=== PATIENT | female | born 1970 ===

== ENCOUNTER 2024-04-08 10:14 | Emergency (ER) | payer MEDICAID, SELFPAY ==
--- NOTE | ~2024-04-08 | US_ITS ---
EXAMINATION: US TRIPLEX LOWER EXTREMITY, RIGHT CLINICAL INFORMATION: Pain. Elevated d-dimer. COMPARISON: None available. TECHNIQUE: Color-flow triplex imaging with spectral analysis and compression Doppler were performed on the right lower extremity. FINDINGS: Respiratory variation, normal compression and augmented flow are noted throughout the right lower extremity. The visualized common femoral vein, superficial femoral vein, profunda femoral vein, popliteal vein and midcalf peroneal and posterior tibial venous segments show no evidence of deep venous thrombosis. There is no Quintana's cyst. US/US venous duplex LE RT IMPRESSION: No acute deep venous thrombosis in the interrogated veins, right lower extremity. Electronically signed by: Phong Farmer MD 04/08/2024 02:20 PM EST
--- NOTE | ~2024-04-08 | CT_ITS ---
EXAMINATION: CT ANGIOGRAM CHEST CLINICAL INFORMATION: Chest pain for one month. Elevated d-dimer. COMPARISON: None available. TECHNIQUE: Multiple axial images were obtained through the chest after the administration of 65 mL of Omnipaque 350 intravenous contrast without reported immediate complications. Extensive vascular post-processing including two-dimensional and three-dimensional reformatted images were created and reviewed on an independent workstation. This CT examination was performed using dose optimization techniques as appropriate, variously including the following: *Automated exposure control *Adjustment of mA and/or kV according to patient size (this includes techniques or standardized protocols for targeted exams where dose is matched to indication/reason for exam; i.e. extremities or head) *Use of iterative reconstruction technique DLP: 238 mGy-cm FINDINGS: No gross intraluminal filling defects within the main pulmonary artery or its main branches. Questionable intraluminal filling defects in the subsegmental pulmonary artery branches to the right lower lung lobe. No aneurysm or dissection, thoracic aorta. No mediastinal lymphadenopathy. No pericardial effusion. No consolidation, pleural effusion or pneumothorax. No bronchiectasis. No honeycombing. Respiratory airways patent. No acute fracture or listhesis in the axial skeleton. CT/CT angio chest PE protocol IMPRESSION: Questionable acute pulmonary emboli subsegmental pulmonary branches to the right lower lung lobe. Fleischner guidelines were followed. Electronically signed by: Phong Farmer MD 04/08/2024 01:20 PM [facility]
--- NOTE | ~2024-04-08 | XR_ITS ---
EXAMINATION: XR CHEST CLINICAL INFORMATION: Chest pain. COMPARISON: None available. TECHNIQUE: 2 views of the chest were obtained. FINDINGS: Mild indistinct margins in the perihilar regions. No consolidation pleural effusion or pneumothorax. Cardiomediastinal silhouette is enlarged. S-shaped curvature of the thoracic spine. XR/XR chest 2V IMPRESSION: Mild interstitial edema in the correct clinical settings. Cardiomegaly versus pericardial effusion. Electronically signed by: Phong Farmer MD 04/08/2024 11:59 AM [facility]
--- NOTE | 2024-04-08 10:18 | ECG_ITS ---
Test Reason : CP Blood Pressure : / mmHG Vent. Rate : 073 BPM Atrial Rate : 073 BPM P-R Int : 174 ms QRS Dur : 076 ms QT Int : 362 ms P-R-T Axes : 065 017 012 degrees QTc Int : 398 ms Normal sinus rhythm Minimal voltage criteria for LVH, may be normal variant ( Sokolow-Shay ) Borderline ECG No previous ECGs available Referred By: Karime Fowler Electronically Signed By:REYNA CONNELLY MD
--- NOTE | 2024-04-08 10:18 | ED.GENADULT ---
HPI - General Adult General Chief complaint: Chest Pain Stated complaint: CPX 1 MONTH Time Seen by Provider: 04/08/24 10:17 Source: patient, EMS, RN notes reviewed and ground support agent Mode of arrival: EMS Limitations: language barrier History of Present Illness ED Provider: jocelyn HPI narrative: Patient is a 53-year-old Citizen Of [place] Creole speaking female presenting to the emergency department with complaint of right anterior chest pain which radiates to right shoulder and upper back for the past month. States that she flew here in November from [place]. Saw a doctor in [place] for similar symptoms, and was prescribed an unknown liquid medication. At times has palpitations, denies any shortness of breath associated with pain. Does reports right calf pain when ambulating down her apartment stairs, none otherwise. Denies recent cough or fever. Denies nausea or vomiting. MD complaint: chest pain Onset (ago): month(s) Location: chest Radiation: back Severity scale (1-10): 8 Quality: stabbing Pain Consistency: colicky Exacerbating factors: movement Treatments prior to arrival: none Related Data Previous Rx's ?Medication ?Instructions ?Recorded apixaban 5 mg (74 tabs) tablets in 5 mg PO BID #74 ea 04/08/24 a dose pack (EliquTheraSim DVT-PE Treat 30D Start) Allergies Allergy/AdvReac Type Severity Reaction Status Date / Time No Known Allergies Allergy Verified 04/08/24 10:32 Review of Systems Review of Systems: As per HPI. Yes all other systems are reviewed and are negative Constitutional: Constitutional: Reports as per HPI [facility] Social History Social History Advance Directives: No Advance Directives Information Provided: Yes Do you have a plan to hurt others: No Plan Physical Exam ED Vital Signs: Vital Signs - 24 hr 04/08/24 10:28 04/08/24 14:13 04/08/24 14:14 Temperature 98.5 F 98.4 F Pulse Rate 80 82 Respiratory Rate 20 18 Blood Pressure 170/93 H 178/85 H Pulse Oximetry 100 100 Oxygen Delivery Method Room Air BMI result Body Mass Index 26.5 Vital signs have been reviewed and appear to be correct. Blood pressure normal. Heart rate normal. Respiratory rate normal. Temperature normal. Oxygen saturation normal. Const General: cooperative, healthy appearing and no acute distress Orientation/consciousness: oriented to person, oriented to place, oriented to time and patient oriented x3 Limitations: no limitations HENMT Head: Yes normocephalic and Yes atraumatic Ears: external ears normal General nose exam: Normal external nose present Face and sinus: Yes face symmetric Mouth: oropharynx normal and moist mucous membranes Throat: Yes uvula midline Eyes Pupils: Equal, round and reactive pupils present Neck Neck: Yes normal visual inspection and Yes supple Resp Effort & Inspection: normal respiratory effort and able to speak in complete sentences Auscultation: clear to auscultation bilaterally Cardio Rate: regular rate Rhythm: regular rhythm Heart sounds: S1 normal heart sound present and S2 normal heart sound present GI Palpation (GI): Soft to palpation and nontender Auscultation: normoactive bowel sounds General: Yes no CVA tenderness Back/Spine/Pelvis Back: no CVA tenderness Skin General skin exam: elasticity normal and turgor normal Neuro General: oriented to person, oriented to place, oriented to time, patient oriented x3, moves all extremities, no focal motor deficits and CN's II-XI intact bilaterally Cranial nerves: Yes Equal, round and reactive pupils present Cognition (Neuro): normal cognition Extrem General: Yes full ROM, Yes no pedal edema and Yes no calf tenderness Psych Mental Status: mental status grossly normal Affect: normal affect Thought process: Normal thought process present Medications Administered Discontinued Medications Generic Name Dose Route Start Last Admin Trade Name Vinodq PRN Reason Stop Dose Admin Iohexol 100 ml 04/08/24 13:05 04/08/24 13:05 Iohexol 350 Mg/Ml 100 Ml Infus..Btl IV 04/08/24 13:06 65 ml ONCE ONE Administration Medical Decision Making Medical Decision Making [facility] Narrative: Patient is a 53-year-old Citizen [place] Creole speaking female presenting to the emergency department with complaint of right anterior chest pain which radiates to right shoulder and upper back for the past month. On exam patient is awake, A+Ox3, VS WNL, afebrile, normal neurological exam without focal deficits, physical exam findings as above. Given reported symptoms and physical exam findings, initial differential includes ACS, PE, GERD, musculoskeletal pain. Labs notable for no leukocytosis, no electrolyte abnormalities, slightly elevated troponin, elevated D-dimer, will obtain CTA chest. CTA notable for questionable acute PE subsegmental pulmonary branches of right lower lobe. My interpretation is in agreement with the radiologist's interpretation. Patient updated on results. Denies any conditions contraindicating treatment with Eliquis. States she is not currently on any other medications. Also requesting to be discharged prior to repeat troponin. I am ok with this as chest pain has been ongoing >1 month, initial trop was 7. Strict return precautions discussed with patient and daughter. Instructed patient that she will need to follow up with [facility] at 3 months. Return to ED with any other new or concerning symptoms. Patient and daughter verbalized understanding of and agreement with plan. Patient provided with Eliquis co-pay card as well as good Rx card. Differential Diagnosis Differential Diagnoses: The differential diagnosis associated with the presentation includes As per [facility] Admission/Observation Consideration of admission/observation: Escalation of care including admission/observation considered Patient would have been admitted to the hospital had their work up had any findings where hospital admission was appropriate and their clinical presentation warranted hospital admission. Lab Data [facility] Lab Attestation statement: I reviewed the patient's lab results. As per [facility] 04/08/24 11:07 04/08/24 11:07 Labs: Lab Results 04/08/24 Range/Units 11:07 WBC 6.4 (4.8-10.8) X10*3/uL RBC 3.94 L (4.20-5.50) X10*6/uL Hgb 12.4 (12.0-16.0) g/dl Hct 35.5 L (37.0-47.0) % MCV 90.1 (80.0-98.0) fL MCH 31.5 (27.0-33.0) pg MCHC 34.9 (31.0-35.0) g/dl RDW 12.6 (11.0-16.0) % Plt Count 185 (160-400) X10*3/uL MPV 10.2 (9.4-12.3) fL Immature Gran % (Auto) 0.3 (0.0-0.4) % Neut % (Auto) 62.4 (45-73) % Lymph % (Auto) 28.2 (20-40) % [place] % (Auto) 7.8 (2-11) % Eos % (Auto) 0.8 (0-4) % Baso % (Auto) 0.5 (0-2) % Lymph # (Auto) 1.8 (1.2-4.9) X10*3/uL [place] # (Auto) 0.5 (0.1-1.2) X10*3/uL Eos # (Auto) 0.1 (0.0-0.4) X10*3/uL Baso # (Auto) 0.0 (0.0-0.2) X10*3/uL Abs Immat Gran (auto) 0.02 (0.00-0.03) X10*3/uL Absolute Neuts (auto) 4.0 (2.0-8.3) x10*3/uL Absolute Nucleated RBC 0.000 (0.0-0.012) X10*3/uL Nucleated RBC % (auto) 0.0 (0.0-0.2) /100WBC PT 12.2 (10.9-12.4) SEC INR 1.0 (0.9-1.1) D-Dimer High Sensitivty 569 NG/ML Sodium 142 (135-145) mmol/L Potassium 4.3 (3.3-5.1) mmol/L Chloride 109 H (96-108) mmol/L Carbon Dioxide 25 (22-29) mmol/L Anion Gap 12 (12-20) BUN 13 (9-16) mg/dL Creatinine 0.79 (0.5-1.4) mg/dL Estim Creat Clear Calc 92.1 Estimated GFR > 60 Random Glucose 80 (60-115) mg/dL Calcium 9.7 (8.4-10.2) mg/dL Magnesium 2.0 (1.6-2.6) mg/dL Total Bilirubin 0.4 (0.0-1.0) mg/dL AST 26 (5-31) U/L ALT 17 (0-31) U/L Alkaline Phosphatase 93 (39-117) U/L Troponin I High Sens 7.6 (<3.5-17.0) ng/L B-Natriuretic Peptide 38 (<100) pg/mL Total Protein 8.2 H (6.5-8.0) g/dL Albumin 4.3 (3.5-5.0) g/dL Influenza Type A (PCR) NEGATIVE (Negative) Influenza Type B (PCR) NEGATIVE (Negative) RSV RNA Qual (PCR) NEGATIVE (Negative) SARS-CoV-2 RNA (RT-PCR) NEGATIVE (Negative) Independent Interpretation I performed an independent interpretation of an: Ultrasound and CT Scan Interpretation: CTA notable for questionable acute PE subsegmental pulmonary branches of right lower lobe. No DVT right leg on ultrasound. Radiology Impression Discussion of test interpretation with radiology: I have reviewed the radiologist's reading. Radiologist Impression: CT/CT angio chest PE protocol IMPRESSION: Questionable acute pulmonary emboli subsegmental pulmonary branches to the right lower lung lobe. US/US venous duplex LE RT IMPRESSION: No acute deep venous thrombosis in the interrogated veins, right lower extremity. External Record Review External record reviewed: Inpatient record, Office record and Outpatient record Prescription Management I considered prescription management with: Other Discharge Plan Discharge Clinical Impression: Pulmonary embolism Patient Disposition: Home, Self-Care Instructions: Apixaban (By mouth), Blood Thinners (ED) Additional Instructions: You were evaluated in the emergency department today for chest pain. Your CT scan showed a blood clot in your lung. You are being started on a blood thinner called Eliquis (apixaban). It is important that you take this medication as prescribed and not miss any doses. You will need to follow up with the [facility] clinic in 3 months. Call to schedule a follow up appointment. Return to the emergency department if you develop worsening chest pain, shortness of breath or difficulty breathing, or any other concerning symptoms. [address] [id number] Prescriptions: New Eliquis DVT-PE Treat 30D Start 5 mg (74 tabs) tablets,dose pack 5 mg PO BID Qty: 74 0RF Rx Instructions: 10mg (2 tabs) BID x 1 week, then 5mg (1 tab) BID Print Language: Citizen [place]
[2024-04-08 10:24] VITALS: BP 183/115; PULSE 82; O2SAT 100
[2024-04-08 10:28] VITALS: PULSE 80; RESP 20; TEMP 36.9; O2SAT 100; BMI 26.5
[2024-04-08 11:14] LABS: Basophils Percent Auto 0.5 % (0-2); Eosinophils Absolute Auto 0.1 X10*3/uL (0.0-0.4); Eosinophils Percent Auto 0.8 % (0-4); Hematocrit 35.5 % (37.0-47.0); Hemoglobin 12.4 g/dl (12.0-16.0); Imm Gran Abs Auto 0.02 X10*3/uL (0.00-0.03); Imm Gran Pct Auto 0.3 % (0.0-0.4); Lymphocytes Absolute Auto 1.8 X10*3/uL (1.2-4.9); Lymphocytes Percent Auto 28.2 % (20-40); MANUAL DIFF FLAG NO; Mean Corpuscular HGB Conc 34.9 g/dl (31.0-35.0); Mean Corpuscular Hemoglobin 31.5 pg (27.0-33.0); Mean Corpuscular Volume 90.1 fL (80.0-98.0); Mean Platelet Volume 10.2 fL (9.4-12.3); Monocytes Absolute Auto 0.5 X10*3/uL (0.1-1.2); Monocytes Percent Auto 7.8 % (2-11); Neutrophils Percent Auto 62.4 % (45-73); Platelet Count 185 X10*3/uL (160-400); Red Blood Count 3.94 X10*6/uL (4.20-5.50); Red Cell Distribution Width 12.6 % (11.0-16.0); White Blood Count 6.4 X10*3/uL (4.8-10.8)
[2024-04-08 11:21] LABS: Prothrombin Time 12.2 SEC (10.9-12.4)
[2024-04-08 11:32] LABS: Alanine Aminotransferase 17 U/L (0-31); Albumin Level 4.3 g/dL (3.5-5.0); Alkaline Phosphatase 93 U/L (39-117); Anion Gap 12 (12-20); Aspartate Amino Transferase 26 U/L (5-31); Bilirubin Total 0.4 mg/dL (0.0-1.0); Blood Urea Nitrogen 13 mg/dL (9-16); Calcium 9.7 mg/dL (8.4-10.2); Carbon Dioxide 25 mmol/L (22-29); Chloride 109 mmol/L (96-108); Creatinine Clr Calc Pharmacy 92.1; Estimated Glomerular Filt Rate > 60; Glucose Random 80 mg/dL (60-115); Potassium 4.3 mmol/L (3.3-5.1); Sodium 142 mmol/L (135-145); Total Protein 8.2 g/dL (6.5-8.0)
[2024-04-08 11:34] LABS: B Type Natriuretic Peptide 38 pg/mL (<100)
[2024-04-08 11:37] LABS: Troponin-I High Sensitivity 7.6 ng/L (<3.5-17.0)
[2024-04-08 11:51] LABS: Influenza A PCR NEGATIVE (Negative); Influenza B PCR NEGATIVE (Negative); Resp Syncy Virus RNA Qual PCR NEGATIVE (Negative); SARS COV2 PCR INHOUSE NEGATIVE (Negative)
[2024-04-08 12:13] LABS: D Dimer High Sensitivity 569 NG/ML
--- NOTE | 2024-04-08 12:50 | PC.NURSE ---
pt to CT at this time.
[2024-04-08] MEDS: iohexoL 350 MG/ML 100 ML INFUS..BTL IV (13:05)
--- NOTE | 2024-04-08 14:01 | PC.NURSE ---
ultrasound being completed at this time.
[2024-04-08 14:13] VITALS: BP 170/93; PULSE 82; RESP 18; TEMP 36.9; O2SAT 100
[2024-04-08 14:14] VITALS: BP 178/85
[2024-04-08 15:17] VITALS: BP 171/102; PULSE 82; RESP 18; TEMP 36.8; O2SAT 99
== END 2024-04-08 15:18 | disposition home or self-care (01) ==
PROVIDERS: Registered Nurse Emergency; Emergency Provider Emergency Medicine
DX: I26.99 Other pulmonary embolism without acute cor pulmonale (principal); M79.661 Pain in right lower leg; R07.9 Chest pain, unspecified
CPT/HCPCS: 0241U; 71046; 71275; 80053; 83735; 83880; 84484; 85025; 85379; 85610; 93005; 93971; 99283; 99284; Q9967

== ENCOUNTER → 2024-04-08 10:18 | Outpatient (BNV) | payer MEDICAID, SELFPAY | PROVIDERS: Emergency Provider Emergency Medicine; Visit Provider Internal Medicine Cardiovascular Disease | DX: R07.9 Chest pain, unspecified (principal); R94.31 Abnormal electrocardiogram [ECG] [EKG] | CPT/HCPCS: 93010 ==

== ENCOUNTER → 2024-04-08 10:18 | Outpatient (BNV) | payer MEDICAID, SELFPAY | PROVIDERS: Emergency Provider Emergency Medicine; Visit Provider Radiology Diagnostic Radiology | DX: M79.604 Pain in right leg (principal); R07.9 Chest pain, unspecified | CPT/HCPCS: 71046; 71275; 93971 ==